=== PATIENT | female | born 1955 | race Caucasian/White ===

== ENCOUNTER 2018-11-08 14:50 | Emergency (ER) | payer MEDICAID ==
[~2018-11-08] VITALS: Ht 167.6 cm; Wt 79.6 kg
[2018-11-08 14:56] VITALS: BP 140/96
[2018-11-08] MEDS ORDERED: TRAM50TA2 PO (15:19)
[2018-11-08] MEDS ORDERED: CLON0.5T11 PO (15:19)
== END 2018-11-08 15:57 | disposition home or self-care (01) ==
LOC: ED 15:50
DX: S82.52XA Displaced fracture of medial malleolus of left tibia, initial encounter for closed fracture (principal); S82.62XA Displaced fracture of lateral malleolus of left fibula, initial encounter for closed fracture; W01.0XXA Fall on same level from slipping, tripping and stumbling without subsequent striking against object, initial encounter; M25.572 Pain in left ankle and joints of left foot; Y93.89 Activity, other specified; Y92.410 Unspecified street and highway as the place of occurrence of the external cause; Y99.8 Other external cause status
CPT/HCPCS: 99283